=== PATIENT | female | born 1990 | race Caucasian/White ===

== ENCOUNTER 2022-03-08 12:34 | Outpatient (RCR) | payer OTHER, BC, SELFPAY ==
--- NOTE | 2022-03-08 16:20 | PC.NURSE ---
In- 1234 Out- 1413 Reason for visit: latch issues History: Mother delivered at [facility] on [birth year]22. Father of baby states the delivering almost happened in the front of [facility] . It was a quick delivery for this . History: According to the mother has been latching poorly since . After two breastfeedings mother's nipples were injured. Observations: Bilateral nipples are injured and attempting to heal. Mother has been applying ointment to her nipples. Education given regarding preventing infection by not putting ointment to her nipples unless her hands are clean. Multiple attempts to encourage to latch optimally to the left breast with mother using the cross cradle positioning. Mother brings infant to the breast and there is discomfort and RN teaches mother how to effective detach infant to protect her nipple. RN suggest using a football position to encourage infant to latch deeper at the breast. Mother timidly latches infant. While bringing to the breast she slightly pulls her body away from in anticipation of pain. Infant has a wide open gape, lips flanged at first, then changes latch to a less than 90 degree latch. Infant observed opening mouth, dropping down the front of his tongue but the mid-tongue is in the middle of his mouth. It is possible that mother is not getting the nipple back to the soft palate related to the position of the tongue. After a few attempts latches deeply and there is discomfort at first, then mother states it feels better . The infant's chin is recessed and top lip frenulum is somewhat tight. Mother has been pumping and bottle feeding to give her nipples a chance to heal. has a strong jaw rocking motion while . After a 10-15 breastfeed had ingested 17 mls and the latch shifts mother detaches due to discomfort and nipple was slightly misshaped. Mother declined putting to the right breast due to the injury that is healing. Redness was noticed on the right breast extending at the 9 o'clock position to the 7 o'clock position and it is warm to touch. Mother stated she had a plugged duct there and had worked it out . RN referred her to call maternal provider for an antibiotic for possible mastitis. Mother voiced understanding the concern to call and follow up with her provider. Father is pace bottle feeding . weight: 8-2 Lowest weight: 8-0 Last weight: 8-3 Pre-feed weight:8-3.7 Post-feed weight: 8-4.3 Plan of Care: 1. Call maternal health provider related to care of the concern of a mastitis infection. 2. Suggestion were made to use a football position for a deeper latch keeping infant's chin buried into the breast with nose near the breast. Detach infant if it is painful understanding there will be discomfort at first related to the previous injury to each nipple. Mother pumped and father of baby fed infant bottled breastmilk. 3. Mother has a nipple shield. Risks and benefits were discussed concerning using the nipple shield. Mother is already pumping and her breast could use a barrier for healing. Educated parents on cleaning and care of nipple shield, how to latch and train for placing tongue down and opening wide for deep latching. 4. Pumping and bottle feeding until nipple and breast healing is obtained, then train back to . Parents voiced understanding the plan of care and when to call [facility] and [facility]. Follow up plans: RN plans to follow-up with a phone call next week to check on progress.
== END 2022-04-23 09:15 | disposition home or self-care (01) ==
LOC: ANHOBOP 12:34
PROVIDERS: PCP Nurse Practitioner Family; Visit Provider Pediatrics
DX: Z39.1 Encounter for care and examination of lactating mother (principal)
CPT/HCPCS: 99203; G0463